=== PATIENT | male | born 1950 | race Two or more races ===

== ENCOUNTER → 2018-05-28 | Outpatient (CLI) | payer OTHER ==
[2018-05-28 07:14] LABS: BASO % 1 % (0-3); EOS # 0.3 x10^3/uL (0.0-0.7); EOS % 4 % (0-3); HEMATOCRIT 46.7 % (39.0-53.0); HEMOGLOBIN 16.1 g/dL (13.0-17.5); LYMPH # 2.8 x10^3/uL (1.0-4.8); LYMPH % 37 % (24-48); MEAN CORPUSCULAR HEMOGLOBIN 35 pg (25-35); MEAN CORPUSCULAR HGB CONC 34 g/dL (31-37); MEAN CORPUSCULAR VOLUME 101 fL (79-100); MONO # 0.8 x10^3/uL (0.0-1.1); MONO % 10 % (0-9); NEUT # 3.8 x10^3uL (1.8-7.7); NEUT % 49 % (31-73); PLATELET COUNT 121 x10^3/uL (140-400); RED BLOOD COUNT 4.64 x10^6/uL (4.30-5.70); WHITE BLOOD COUNT 7.7 x10^3/uL (4.0-11.0)
[2018-05-28 07:18] LABS: ALBUMIN/GLOBULIN RATIO 0.8 (1.0-1.7); CALCIUM 9.1 mg/dL (8.5-10.1); CREATININE 1.1 mg/dL (0.7-1.3); POTASSIUM 3.4 mmol/L (3.5-5.1); TOTAL PROTEIN 6.8 g/dL (6.4-8.2)
[2018-05-28 07:21] LABS: TOTAL BILIRUBIN 1.8 mg/dL (0.2-1.0)
== END | disposition home or self-care (01) ==
LOC: SPEC 06:59
PROVIDERS: ATTEND Preventive Medicine Occupational Medicine
DX: Z00.00 Encounter for general adult medical examination without abnormal findings (principal)
CPT/HCPCS: 36415; 80053; 82140; 85025

== ENCOUNTER → 2018-06-04 | Outpatient (CLI) | payer OTHER | END | disposition home or self-care (01) | LOC: SPEC 08:33 → EEVIPCON 08:33 | PROVIDERS: ATTEND Nurse Practitioner | DX: Z00.00 Encounter for general adult medical examination without abnormal findings (principal) | CPT/HCPCS: 36415; 82140 ==

== ENCOUNTER → 2018-08-15 | Outpatient (CLI) | payer OTHER | END | disposition home or self-care (01) | LOC: EEVIPCON 09:38 → SPEC 09:38 | PROVIDERS: ATTEND Preventive Medicine Occupational Medicine | DX: Z00.00 Encounter for general adult medical examination without abnormal findings (principal) | CPT/HCPCS: 36415; 82140 ==

== ENCOUNTER → 2018-12-11 | Outpatient (CLI) | payer OTHER | END | disposition home or self-care (01) | LOC: SPEC 08:47 | PROVIDERS: ATTEND Urology | DX: K72.90 Hepatic failure, unspecified without coma (principal) | CPT/HCPCS: 36415; 82140 ==

== ENCOUNTER → 2018-12-17 | Outpatient (CLI) | payer OTHER | END | disposition home or self-care (01) | LOC: SPEC 08:43 → EEVIPCON 08:43 | PROVIDERS: ATTEND Preventive Medicine Occupational Medicine | DX: K72.90 Hepatic failure, unspecified without coma (principal) | CPT/HCPCS: 36415; 82140 ==

== ENCOUNTER → 2019-01-02 | Outpatient (CLI) | payer OTHER | END | disposition home or self-care (01) | LOC: SPEC 05:38 | PROVIDERS: ATTEND Preventive Medicine Occupational Medicine | DX: K72.90 Hepatic failure, unspecified without coma (principal) | CPT/HCPCS: 36415; 82140 ==

== ENCOUNTER → 2019-03-27 | Outpatient (CLI) | payer OTHER | END | disposition home or self-care (01) | LOC: EEVIPCON 06:59 → SPEC 06:59 | PROVIDERS: ATTEND Preventive Medicine Occupational Medicine | DX: K72.90 Hepatic failure, unspecified without coma (principal) | CPT/HCPCS: 36415; 82140 ==

== ENCOUNTER → 2019-04-16 | Outpatient (CLI) | payer OTHER | END | disposition home or self-care (01) | LOC: SPEC 11:03 → EEVIPCON 11:03 | PROVIDERS: ATTEND Preventive Medicine Occupational Medicine | DX: K72.90 Hepatic failure, unspecified without coma (principal) | CPT/HCPCS: 36415; 82140 ==

== ENCOUNTER → 2019-04-17 | Outpatient (CLI) | payer OTHER ==
[2019-04-17 11:18] LABS: BASO # 0.1 x10^3/uL (0.0-0.2); BASO % 0 % (0-3); EOS # 0.2 x10^3/uL (0.0-0.7); EOS % 1 % (0-3); HEMATOCRIT 44.2 % (39.0-53.0); HEMOGLOBIN 14.9 g/dL (13.0-17.5); LYMPH # 2.1 x10^3/uL (1.0-4.8); LYMPH % 10 % (24-48); MEAN CORPUSCULAR HEMOGLOBIN 34 pg (25-35); MEAN CORPUSCULAR HGB CONC 34 g/dL (31-37); MEAN CORPUSCULAR VOLUME 100 fL (79-100); MONO # 2.7 x10^3/uL (0.0-1.1); MONO % 14 % (0-9); NEUT % 75 % (31-73); PLATELET COUNT 59 x10^3/uL (140-400); RED BLOOD COUNT 4.43 x10^6/uL (4.30-5.70); WHITE BLOOD COUNT 20.1 x10^3/uL (4.0-11.0)
[2019-04-17 11:32] LABS: ALBUMIN 3.2 g/dL (3.4-5.0); ALBUMIN/GLOBULIN RATIO 0.7 (1.0-1.7); CALCIUM 9.5 mg/dL (8.5-10.1); CREATININE 2.5 mg/dL (0.7-1.3); GFR 25.9; TOTAL BILIRUBIN 3.5 mg/dL (0.2-1.0)
[2019-04-17 12:30] LABS: % ATYL 2 % (0-0); % BANDS 6 % (0-9); % LYMPHS 9 % (24-48); % MONOS 9 % (0-10); % SEGS 74 % (35-66); PLT ESTIMATE DECREASED (ADEQUATE)
[2019-04-17 12:31] LABS: TOXIC GRANULATION PRESENT; TOXIC VACUOLATION PRESENT
[2019-04-17 12:38] LABS: POTASSIUM 2.6 mmol/L (3.5-5.1)
== END | disposition home or self-care (01) ==
LOC: EEVIPCON 11:01 → SPEC 11:01
PROVIDERS: ATTEND Nurse Practitioner
DX: K72.90 Hepatic failure, unspecified without coma (principal)
CPT/HCPCS: 36415; 80053; 85007; 85025